=== PATIENT | female | born 1965 | race Caucasian/White ===

== ENCOUNTER 2017-03-08 09:51 | Emergency (ER) | payer BC ==
[~2017-03-08] VITALS: Ht 175.3 cm; Wt 150.0 kg
[~2017-03-08 09:51] MED LIST: HYDROXYCHLOR OR; INTROVALE PO; METOPROL TAR50 MG PO; SEASONALE PO; SYNTHROID100 MCG PO; TAPAZOLE10 MG PO
[2017-03-08 10:32] LABS: HEMATOCRIT 41.8 % (37.0-47.0); HEMOGLOBIN 13.7 g/dl (12.0-16.0); IMMATURE GRANULOCYTES 0.5 % (0.0-1.0); MEAN CELL VOLUME 88.7 fL CALC (80.0-100.0); MEAN CORPUSCULAR HGB 29.1 pG CALC (26.0-32.0); MEAN CORPUSCULAR HGB CONC 32.8 g/L CALC (32.0-36.0); NEUT# 3.71 thou/uL (2.00-7.15); RED BLOOD COUNT 4.71 mill/uL (4.20-5.60); RED CELL DISTRI WIDTH 12.5 % (11.5-15.5)
[2017-03-08] MEDS ORDERED: METOPROL TAR100 MG PO (10:32)
[2017-03-08] MEDS ORDERED: LEVOTHROID125 MCG PO (10:33)
[2017-03-08] MEDS ORDERED: [UNRECOGNIZED DRUG - OTHER] PO (10:34)
[2017-03-08] MEDS ORDERED: VITAMIN D2000 UNI1 PO (10:35)
[2017-03-08] MEDS ORDERED: ACCOLATE10 MG PO (10:35)
[2017-03-08] MEDS ORDERED: B121000 MCG PO (10:35)
[2017-03-08 10:50] LABS: ALBUMIN 4.5 g/dL (3.2-5.0); ALKALINE PHOSPHATASE 59 u/l (38-126); ANION GAP 19 (6-22 (CALC)); BILIRUBIN, TOTAL 0.6 mg/dL (0.0-1.4); BUN 13 mg/dL (7-17); BUN/CREATININE RATIO 15 (12-20 (CALC)); CALCIUM 9.7 mg/dL (8.4-10.2); CARBON DIOXIDE 22 mmol/l (22-30); CHLORIDE 103 mmol/l (95-108); CREATININE 0.8 mg/dL (0.5-1.0); GFR > 60 ML/MIN (>=60 (CALC)); GFR FOR AFR.AMER. > 60 ML/MIN (>=60 (CALC)); GLUCOSE 88 mg/dL (65-105); POTASSIUM 3.8 mmol/l (3.5-5.1); SGOT/AST 27 u/l (14-36); SGPT/ALT 28 u/l (9-52); SODIUM 140 mmol/l (137-146); TOTAL PROTEIN 8.2 g/dL (6.3-8.2)
[2017-03-08 11:06] LABS: MYOGLOBIN 25 ng/mL (0 - 62)
[2017-03-08 11:41] LABS: URINE BILIRUBIN - DIPSTICK NEGATIVE (NEGATIVE); URINE BLOOD DIPSTICK MODERATE (NEGATIVE); URINE CLARITY CLEAR; URINE COLOR YELLOW; URINE GLUCOSE - DIPSTICK NEGATIVE (NEGATIVE); URINE KETONE NEGATIVE (NEGATIVE); URINE LEUK ESTERASE NEGATIVE (NEGATIVE); URINE NITRITE - DIPSTICK NEGATIVE (Negative); URINE PROTEIN - DIPSTICK NEGATIVE (NEG-TRACE); URINE UROBILINOGEN - DIPSTICK 0.2 E.U./dL (0.2)
[2017-03-08 11:51] LABS: URINE BACTERIA FEW hpf
[2017-03-08 11:52] LABS: URINE HYALINE CAST FEW lpf (NONE-RARE); URINE SQUAMOUS EPITHELIAL CELL FEW EPI/hpf (0-FEW)
[2017-03-08 12:22] VITALS: BP 168/85
== END 2017-03-08 12:37 | disposition home or self-care (01) | DRG 312 ==
LOC: ED 09:51
PROVIDERS: Emergency Medicine
DX: R55 Syncope and collapse (principal); R53.81 Other malaise; R11.0 Nausea

== ENCOUNTER 2021-11-24 16:37 | Emergency (ER) | payer BC ==
[~2021-11-24] VITALS: Ht 172.7 cm; Wt 70.3 kg
[~2021-11-24 16:37] MED LIST changes: +ACCOLATE10 MG PO; +B121000 MCG PO; +LEVOTHROID125 MCG PO; +METOPROL TAR100 MG PO; +VITAMIN D2000 UNI1 PO; +[UNRECOGNIZED DRUG - OTHER] PO
[2021-11-24 18:37] LABS: URINE BILIRUBIN - DIPSTICK NEGATIVE (NEGATIVE); URINE BLOOD DIPSTICK TRACE-INTACT (NEGATIVE); URINE COLOR YELLOW; URINE GLUCOSE - DIPSTICK NEGATIVE (NEGATIVE); URINE KETONE NEGATIVE (NEGATIVE); URINE LEUK ESTERASE NEGATIVE (NEGATIVE); URINE PROTEIN - DIPSTICK NEGATIVE (NEG-TRACE); URINE SPECIFIC GRAVITY <=1.005; URINE UROBILINOGEN - DIPSTICK 0.2 E.U./dL (0.2)
[2021-11-24 18:39] LABS: URINE NITRITE - DIPSTICK NEGATIVE (Negative)
[2021-11-24 18:50] LABS: HEMATOCRIT 38.2 % (37.0-47.0); HEMOGLOBIN 12.4 g/dl (12.0-16.0); IMMATURE GRANULOCYTES 0.1 % (0.0-5.0); MEAN CELL VOLUME 92.5 fL CALC (80.0-100.0); MEAN CORPUSCULAR HGB CONC 32.5 g/dL CAL (32.0-36.0); NEUT# 9.97 thou/uL (2.00-7.15); RED BLOOD COUNT 4.13 mill/uL (4.20-5.60); RED CELL DISTRI WIDTH 12.2 % (11.5-15.5)
[2021-11-24 18:57] LABS: ALBUMIN 4.5 g/dL (3.2-5.0); ALKALINE PHOSPHATASE 85 u/l (38-126); AMYLASE 68 u/l (30-110); ANION GAP 12 (6-22 (CALC)); BILIRUBIN, TOTAL 0.7 mg/dL (0.0-1.4); BUN 11 mg/dL (7-17); BUN/CREATININE RATIO 14 (12-20 (CALC)); CHLORIDE 101 mmol/l (95-108); CREATININE 0.8 mg/dL (0.5-1.0); GFR > 60 ML/MIN (>=60 (CALC)); GFR FOR AFR.AMER. > 60 ML/MIN (>=60 (CALC)); LIPASE 99 u/l (23-300); POTASSIUM 3.8 mmol/l (3.5-5.1); SGOT/AST 23 u/l (14-36); SODIUM 138 mmol/l (137-146); TOTAL PROTEIN 7.7 g/dL (6.3-8.2)
[2021-11-24 18:59] LABS: CARBON DIOXIDE 29 mmol/l (22-30)
[2021-11-24] MEDS ORDERED: BYSTOLIC5 MG PO (19:29)
[2021-11-24] MEDS ORDERED: SYNTHROID88 MCG PO (19:29)
[2021-11-24] MEDS ORDERED: LOSARTAN POTASS50 MG PO (19:30)
[2021-11-24] MEDS ORDERED: CALCIUM600 M1 PO (19:30)
[2021-11-24] MEDS ORDERED: ACETAMINOPHEN650 M2 (19:31)
[2021-11-24] MEDS ORDERED: SLEEP AID25 MG PO (19:32)
[2021-11-24] MEDS ORDERED: TURMERIC500 MG (19:32)
[2021-11-24] MEDS ORDERED: VAGIFEM10 MCG VA (19:34)
[2021-11-24] MEDS ORDERED: PRESERVISION PO (19:34)
[2021-11-24] MEDS ORDERED: CIPROFLOXACN500 MG PO (19:48)
[2021-11-24] MEDS ORDERED: METRONIDAZOLE500 MG PO (19:48)
[2021-11-24 19:54] VITALS: BP 123/69
== END 2021-11-24 19:55 | disposition home or self-care (01) | DRG 392 ==
LOC: ED 16:37
DX: K57.32 Diverticulitis of large intestine without perforation or abscess without bleeding (principal); I10 Essential (primary) hypertension; M35.00 Sjogren syndrome, unspecified; E06.3 Autoimmune thyroiditis; Z20.822 Contact with and (suspected) exposure to COVID-19
CPT/HCPCS: Q9967